=== PATIENT | female | born 1980 | race Caucasian/White ===

== ENCOUNTER 2017-04-29 12:31 | Emergency (ER) | payer MEDICAID ==
[~2017-04-29] VITALS: Ht 165.1 cm; Wt 72.4 kg
[2017-04-29 12:43] VITALS: BP 120/79
[2017-04-29] MEDS ORDERED: KETOROLAC 30 MG/1 ML ONE (13:00)
[2017-04-29] MEDS ORDERED: KETOROLAC 30 MG/1 ML IM ONE (13:00)
== END 2017-04-29 13:55 | disposition home or self-care (01) ==
LOC: ED 13:30
DX: G89.29 Other chronic pain (principal); M25.552 Pain in left hip; M25.551 Pain in right hip
CPT/HCPCS: 72110; 73523; 96372; 99284; J1885

== ENCOUNTER 2019-07-17 10:01 | Emergency (ER) | payer MEDICAID ==
--- NOTE | 2019-07-17 10:27 | NUR ---
NA X 1
--- NOTE | 2019-07-17 10:41 | NUR ---
LATE ENTRY FOR 1035 NA X2
--- NOTE | 2019-07-17 10:43 | NUR ---
NA X 3
== END 2019-07-17 10:49 | disposition left against medical advice (07) ==
LOC: ED 10:43
DX: R05 Cough (principal); Z53.21 Procedure and treatment not carried out due to patient leaving prior to being seen by health care provider

== ENCOUNTER 2019-11-28 00:20 | Emergency (ER) | payer MEDICAID ==
[~2019-11-28] VITALS: Ht 165.1 cm; Wt 70.0 kg
[2019-11-28 00:22] VITALS: BP 118/85
--- NOTE | 2019-11-28 03:00 | NUR ---
CALLED FOR ROOM, NO ANSWER.
== END 2019-11-28 06:11 | disposition left against medical advice (07) ==
LOC: ED 06:00
DX: K92.0 Hematemesis (principal); R10.9 Unspecified abdominal pain; Z53.21 Procedure and treatment not carried out due to patient leaving prior to being seen by health care provider